=== PATIENT | female | born 1995 | race Caucasian/White ===

== ENCOUNTER 2017-06-09 19:05 | Emergency (ER) | payer BC ==
[~2017-06-09] VITALS: Ht 175.3 cm; Wt 122.5 kg
[~2017-06-09 19:05] MED LIST: ADDERALL 20 MG20 MG PO; BUPROPION HCL100 MG PO; METFORMIN HCL500 MG PO; PROGESTERONE200 MG PO; PROZAC20 MG PO; ZONEGRAN100 MG PO
[2017-06-09] MEDS ORDERED: NEURONTIN100 MG PO (19:41)
[2017-06-09 19:59] LABS: BILIRUBIN,URINE NEGATIVE (NEGATIVE); CLARITY,URINE CLEAR (CLEAR); COLOR,URINE YELLOW (YELLOW); KETONES,URINE NEGATIVE (NEGATIVE); LEUKOCYTE ESTERASE ,URINE NEGATIVE (NEGATIVE); NITRITE,URINE NEGATIVE (NEGATIVE); PROTEIN,URINE DIPSTICK NEGATIVE (NEGATIVE); URINE UROBILINOGEN 0.2 mg/dL (0.2 - 1)
[2017-06-09] MEDS ORDERED: DIAZEPAM 2 MG TAB PO ONE (20:00)
[2017-06-09 20:15] LABS: BACTERIA,URINE FEW /HPF; EPITHELIAL CELLS,URINE RARE /LPF; RBC,URINE 21-50 /HPF (0-5)
--- NOTE | 2017-06-09 20:16 | Diagnostic Imaging Report ---
CHEST 2 VIEWS, Technique: CHEST 2 VIEWS Comparison: None Clinical history: Chest pain DISCUSSION: Slight enlargement of the cardiac silhouette. There is no edema or consolidation. No pleural effusion or pneumothorax. IMPRESSION: Slight enlargement of the cardiac silhouette. Otherwise negative. Signed by: Dr Yasmin Ramírez MD on 06/09/2017 8:12 PM
--- NOTE | 2017-06-09 22:16 | Diagnostic Imaging Report ---
EXAM: CT ABDOMEN/PELVIS WO DATE: 06/09/2017 8:42 PM INDICATION: \S\kidney stone protocol left back pain \S.br\COMPARISON: None TECHNIQUE: The abdomen and pelvis were scanned using a multidetector helical scanner. Coronal and sagittal reformations were obtained. Routine protocol performed. IV Contrast: None FINDINGS: Lack of IV contrast decreases sensitivity in evaluating abdominal and pelvic organs. LOWER THORAX: No consolidations LIVER/BILIARY: Hepatic steatosis. No ductal dilatation. GALLBLADDER: Unremarkable SPLEEN: Unremarkable PANCREAS: Unremarkable ADRENALS: No nodules KIDNEYS: Punctate nonobstructing right inferior renal calculus. No hydronephrosis. GI TRACT: No distention, wall thickening or evidence of obstruction. Normal appendix. VESSELS: Unremarkable PERITONEUM/RETROPERITONEUM: No free air or fluid LYMPH NODES: No lymphadenopathy REPRODUCTIVE ORGANS/BLADDER: Unremarkable SOFT TISSUES: Unremarkable BONES: No suspicious bone lesions. IMPRESSION: 1. Punctate right inferior renal calculus without evidence of obstructive uropathy. 2. Hepatic steatosis. Signed by: Dr Yasmin Ramírez MD on 06/09/2017 10:12 PM
[2017-06-09] MEDS ORDERED: DEXAMETHASONE SOD PHOS INJ 4 MG/ML VIAL IM ONE (22:45)
[2017-06-09] MEDS ORDERED: METHYLPREDNISOLONE ACETATE 40 MG/ML VIAL IM ONE (22:45)
[2017-06-09] MEDS ORDERED: BUPIVACAINE HCL 0.5% INJ 30 ML VIAL INJ ONE (23:00)
[2017-06-09] MEDS ORDERED: BUPIVACAINE HCL 0.5% 10ML MPF VIAL INJ ONE (23:02)
[2017-06-09 23:38] VITALS: BP 139/84
== END 2017-06-09 23:39 | disposition home or self-care (01) ==
LOC: ER 19:05
DX: M54.6 Pain in thoracic spine (principal); S29.012A Strain of muscle and tendon of back wall of thorax, initial encounter; E28.2 Polycystic ovarian syndrome
CPT/HCPCS: 71020; 74176; 81001; 81025; 99284; J1100

== ENCOUNTER → 2020-03-29 | Outpatient (CLI) | payer BC ==
[~2020-03-29] MED LIST changes: +NEURONTIN100 MG PO
--- NOTE | 2020-03-29 17:02 | Diagnostic Imaging Report ---
EXAM: CT Abdomen and Pelvis WITHOUT contrast INDICATION: Flank pain concerning for obstructive renal or ureteral stone. COMPARISON: CT of the abdomen/pelvis on 06/09/2017. TECHNIQUE: Abdomen and pelvis were scanned utilizing a multidetector helical scanner from the lung base to the pubic symphysis without administration of IV contrast. Absence of intravenous contrast decreases sensitivity for detection of focal lesions and vascular pathology. Coronal and sagittal reformations were obtained. Routine protocol was performed. IV CONTRAST: None ORAL CONTRAST: None COMPLICATIONS: None RADIATION DOSE: Total DLP: 804.78 mGy*cm Estimated effective dose: (DLP x 0.015 x size factor) mSv CTDIvol has been reviewed. It is below the limits set by the Radiation Protocol Committee (RPC). Dose modulation, iterative reconstruction, and/or weight based adjustment of the mA/kV was utilized to reduce the radiation dose to as low as reasonably achievable. FINDINGS: LINES and TUBES: None. LOWER THORAX: Unremarkable HEPATOBILIARY: No focal hepatic lesions. No biliary ductal dilation. GALLBLADDER: No radio-opaque stones or sludge. No wall thickening. SPLEEN: No splenomegaly. PANCREAS: No focal masses or ductal dilatation. ADRENALS: No adrenal nodules KIDNEYS/URETERS: No hydronephrosis. No cystic or solid mass lesions. No stones. GI TRACT: No abnormal distention, wall thickening, or evidence of bowel obstruction. Appendix is normal. PELVIC ORGANS/BLADDER: Unremarkable. LYMPH NODES: No lymphadenopathy. VESSELS: Unremarkable. PERITONEUM / RETROPERITONEUM: No free air or fluid. BONES: Unremarkable. SOFT TISSUES: Unremarkable. IMPRESSION: No acute abdominopelvic abnormality. Specifically no obstructive renal or ureteral stones. Signed by: Geovany Ruano MD on 03/29/2020 4:59 PM
== END ==
LOC: CT 15:59
PROVIDERS: ATTEND Family Medicine
DX: R10.9 Unspecified abdominal pain (principal); M54.5 Low back pain
CPT/HCPCS: 74176; 81025